=== PATIENT | female | born 1930 | race Caucasian/White ===

== ENCOUNTER 2017-02-14 08:50 | Inpatient (IN) | payer MEDICARE, OTHER ==
[2017-02-14] MEDS ORDERED: Sodium Chloride 0.9% 10 ML Syringe FLUSH PRN (09:00)
[2017-02-14] MEDS ORDERED: Lactated Ringers 1,000 ML IV SCH ×2 (09:00→13:30)
[2017-02-14] MEDS: cefOXitin 1 GM in Premix Bag 1 BAG IV ONE ×2 (10:48→11:37)
[2017-02-14] MEDS ORDERED: Edrophonium Chloride 150 MG/15 ML MDV IVPUSH ONE (11:40)
[2017-02-14] MEDS ORDERED: Dexamethasone 4 MG/ML 5 ML MDV IVPUSH ONE (11:40)
[2017-02-14] MEDS ORDERED: Lactated Ringers 1,000 ML IV ONE (11:40)
[2017-02-14] MEDS ORDERED: fentaNYL 100 MCG/2 ML SDV IV ONE (11:40)
[2017-02-14] MEDS ORDERED: Ondansetron 4 MG/2 ML SDV IVPUSH ONE (11:40)
[2017-02-14] MEDS ORDERED: Ketorolac 30 MG/ML SDV IVPUSH ONE (11:40)
[2017-02-14] MEDS ORDERED: Midazolam 1 MG/ML 2 ML SDV IV ONE (11:40)
[2017-02-14] MEDS ORDERED: Propofol 200 MG/20 ML SDV IV ONE (11:40)
[2017-02-14] MEDS ORDERED: Rocuronium 50 MG/5 ML Vial IV ONE (11:40)
[2017-02-14] MEDS ORDERED: Succinylcholine/Normal Saline 200 MG/10 ML Syringe IV ONE (11:40)
--- NOTE | 2017-02-14 11:45 | PCM.HPR ---
H & P Addendum review - H & P Addendum Review Date of Original H & P: 02/03/17 Date Reviewed: 02/14/17 Time Reviewed: 11:30 Patient was Examined: No Changes Please Note any Changes: Hgb 8; ok to proceed with surgery
--- NOTE | 2017-02-14 13:24 | PCM.OPNOTE ---
- General Post-Op/Procedure Note Date of Surgery/Procedure: 02/14/17 Operative Procedure(s): R Colectomy Findings: Cecal Tumor Pre Op Diagnosis: Cecal Ca Post-Op Diagnosis: Same Anesthesia Technique: General ET Tube Primary Surgeon: Juancho Leonard Secondary Surgeon: Keagan Mercado Anesthesia Provider: Allie Nieves Pathology: R Colon EBL in mLs: 20 (less than 50) Complications: None Condition: Good
[2017-02-14] MEDS ORDERED: Pantoprazole 40 MG Vial IVPUSH SCH (13:30)
[2017-02-14] MEDS ORDERED: fentaNYL 100 MCG/2 ML SDV IVPUSH PRN (13:30)
[2017-02-14] MEDS: Morphine 2 MG/ML Syringe IV PRN ×4 (14:09→15:00)
[2017-02-14] MEDS: Pantoprazole 40 MG Vial IVPUSH SCH (15:46)
[2017-02-14] MEDS: Morphine 2 MG/ML Syringe IVPUSH PRN ×2 (16:04→18:31)
[2017-02-14] MEDS: cefOXitin 1 GM in Premix Bag 1 BAG IV SCH ×2 (17:26→23:07)
[2017-02-14] MEDS: Lactated Ringers 1,000 ML IV SCH (19:52)
[2017-02-14] MEDS: Ketorolac 15 MG/ML SDV IVPUSH SCH (22:04)
[2017-02-15] MEDS: Morphine 2 MG/ML Syringe IVPUSH PRN ×2 (01:09→17:32)
--- NOTE | 2017-02-15 02:22 | OR ---
DATE OF OPERATION: 02/14/2017 SURGEON: Juancho Leonard MD PREOPERATIVE DIAGNOSIS: Adenocarcinoma of the cecum. POSTOPERATIVE DIAGNOSIS: Adenocarcinoma of the cecum. PROCEDURE PERFORMED: Right colectomy. ANESTHESIA: General. UTILITY ENGINEER: MD Dr. Keagan Lombardo was present and was integral for assistance and retracting during the operation. DESCRIPTION OF PROCEDURE: The patient was brought to the operating room, where general endotracheal anesthesia was administered. Mireles catheter was inserted and Flowtrons applied. Abdomen was prepped with ChloraPrep and draped sterilely. Midline incision was made and extended into the peritoneal cavity without difficulty. The wound protractor was placed and Middleton retractor system set up. General exploration revealed a large mobile tumor in the cecum with full thickness invasion through the wall. There was no peritoneal studding or other evidence of metastatic disease. Small bowel, peritoneal surfaces, stomach, and pelvis were normal. Adnexa are surgically absent. There were some adhesions of the terminal ileum to the right adnexa that were taken down with sharp dissection to expose and free up the terminal ileum. Gallbladder felt normal. The right and left lobe of the liver both have cysts at the dome approximately 1 cm in diameter. The right colon was mobilized along its peritoneal reflection using electrocautery. Terminal ileum was freed up with blunt and sharp dissection. The hepatocolic ligament was taken down with electrocautery. The lesser sac was entered and omentum freed off the right colon and transected in line with the midportion of the transverse colon. The middle colic vessel was identified and the mesentery scored to the right of the middle colic vessels. The mesentery was taken down with peons and 0 Vicryl ties. Larger vessels were doubly tied. Duodenum and retroperitoneal structures were protected from injury. The colon was transected with the Endo-HERMINIO stapler to the right of the middle colic vessels and approximately 10 cm proximal to the terminal ileum. The specimen was opened and sent for pathology review. A functional end-to-end anastomosis was then created by making an opening in the bowel end along the antimesenteric surfaces and the anastomosis was completed with a HERMINIO 55 stapler and the colotomy closed with a TA 60 stapler. The anastomosis was reinforced circumferentially with 3-0 silk and the heel of the anastomosis reinforced with 2-0 silk. The mesentery defect was closed with running 3-0 chromic. Bowel ends were delivered back into the abdomen and peritoneal cavity irrigated and return was clear and hemostasis assured. Fascia was closed with running #2 Prolene with a few #1 PDS interrupted internal retention sutures. The wound was irrigated and skin closed with gely. A sterile dressing was applied. The patient tolerated the procedure well. Estimated blood loss20 mL. She returned to postanesthesia in stable condition. /[id number] [place]
[2017-02-15] MEDS: Ketorolac 15 MG/ML SDV IVPUSH SCH ×4 (03:05→21:11)
[2017-02-15] MEDS: cefOXitin 1 GM in Premix Bag 1 BAG IV SCH ×4 (05:34→22:29)
[2017-02-15] MEDS: Lactated Ringers 1,000 ML IV SCH ×2 (05:39→18:41)
[2017-02-15] MEDS: Enoxaparin 30 MG/0.3 ML Syringe SUBCUT SCH (09:10)
--- NOTE | 2017-02-15 10:42 | PCM.SURGPN ---
- General Info Date of Service: 02/15/17 POD#: 1 Post-Op Diagnosis: Colon Cancer Functional Status: Reports: Pain Controlled, Ambulating - Review of Systems General: Reports: No Symptoms Pulmonary: Reports: No Symptoms Cardiovascular: Reports: No Symptoms Gastrointestinal: Reports: No Symptoms - Patient Data Vitals - most recent: Last Vital Signs Temp 97.7 F 02/15/17 08:04 Pulse 72 02/15/17 08:04 Resp 18 02/15/17 08:04 BP 127/65 02/15/17 08:04 Pulse Ox 98 02/15/17 08:04 Weight - most recent: 52.617 kg I&O - last 24 hours: Intake & Output 02/14/17 02/15/17 02/15/17 22:59 06:59 14:59 Intake Total 675 924 Output Total 250 Balance 675 674 Lab Results last 24 hrs: Laboratory Results - last 24 hr 02/14/17 02/14/17 02/15/17 Range/Units 10:59 10:59 06:40 WBC 8.6 (4.5-12.0) X10-3/uL RBC 3.22 L (3.23-5.20) x10(6)uL Hgb 8.0 L 7.4 L (11.5-15.5) g/dL Hct 24.3 L (30.0-51.3) % MCV 75.6 L (80-96) fL MCH 23.0 L (27.7-33.6) pg MCHC 30.4 L (32.2-35.4) g/dL RDW 30.3 H (11.5-15.5) % Plt Count 323 (125-369) X10(3)uL Sodium (135-145) mmol/L Potassium (3.5-5.3) mmol/L Chloride (100-110) mmol/L Carbon Dioxide (23-29) mmol/L BUN (8-23) mg/dL Creatinine (0.6-1.3) mg/dL Est Cr Clr Drug Dosing mL/min Estimated GFR (MDRD) (>60) BUN/Creatinine Ratio (9-20) Glucose (80-116) mg/dL Calcium (8.6-10.2) mg/dL Blood Type A POSITIVE Gel Antibody Screen Negative 02/15/17 Range/Units 06:40 WBC (4.5-12.0) X10-3/uL RBC (3.23-5.20) x10(6)uL Hgb (11.5-15.5) g/dL Hct (30.0-51.3) % MCV (80-96) fL MCH (27.7-33.6) pg MCHC (32.2-35.4) g/dL RDW (11.5-15.5) % Plt Count (125-369) X10(3)uL Sodium 131 L (135-145) mmol/L Potassium 3.9 (3.5-5.3) mmol/L Chloride 99 L (100-110) mmol/L Carbon Dioxide 26 (23-29) mmol/L BUN 15 (8-23) mg/dL Creatinine 0.7 (0.6-1.3) mg/dL Est Cr Clr Drug Dosing 46.47 mL/min Estimated GFR (MDRD) > 60 (>60) BUN/Creatinine Ratio 21.4 H (9-20) Glucose 123 H (80-116) mg/dL Calcium 9.3 (8.6-10.2) mg/dL Blood Type Gel Antibody Screen Med Orders - Current: Current Medications Enoxaparin Sodium (Lovenox) 30 mg SUBCUT Q24H [facility] Last Admin: 02/15/17 09:10 Dose: 30 mg Lactated Ringer's (Ringers, Lactated) 1,000 mls @ 100 mls/hr IV ASDIRECTED [facility] Last Admin: 02/15/17 05:39 Dose: 100 mls/hr Cefoxitin Sodium 1 gm/ Premix 50 mls @ 100 mls/hr IV Q6H [facility] Stop: 02/16/17 05:29 Last Admin: 02/15/17 05:34 Dose: 100 mls/hr Ketorolac Tromethamine (Toradol) 15 mg IVPUSH Q6H [facility] Stop: 02/16/17 21:01 Last Admin: 02/15/17 09:10 Dose: 15 mg Morphine Sulfate (Morphine) 1 mg IVPUSH Q2H PRN PRN Reason: Pain (severe 7-10) Last Admin: 02/15/17 01:09 Dose: 1 mg Pantoprazole Sodium (Protonix Iv) 40 mg IVPUSH Q24H [facility] Last Admin: 02/14/17 15:46 Dose: 40 mg Sodium Chloride (Saline Flush) 10 ml FLUSH ASDIRECTED PRN PRN Reason: Keep Vein Open Discontinued Medications Fentanyl (Sublimaze) 50 mcg IVPUSH Q5M PRN PRN Reason: Pain (severe 7-10) Lactated Ringer's (Ringers, Lactated) 1,000 mls @ 125 mls/hr IV ASDIRECTED [facility] Last Admin: 02/14/17 10:24 Dose: 125 mls/hr Cefoxitin Sodium 1 gm/ Premix 50 mls @ 100 mls/hr IV ONETIME ONE Stop: 02/14/17 11:14 Last Admin: 02/14/17 11:37 Dose: 100 mls/hr Lactated Ringer's (Ringers, Lactated) 1,000 mls @ 0 mls/hr IV ASDIRECTED [facility] PRN Reason: KVO Morphine Sulfate (Morphine) 2 mg IV Q5M PRN PRN Reason: Pain (moderate 4-6) Last Admin: 02/14/17 15:00 Dose: 2 mg Pantoprazole Sodium (Protonix Iv) 40 mg IVPUSH Q24H [facility] - Exam Wound/Incisions: healing well, dressing dry and intact General: alert, oriented Lungs: Clear to Auscultation, Normal Respiratory Effort GI/Abdominal Exam: Soft, Non-Tender, No Distention - Problem List Review Problem List Initiated/Reviewed/Updated: Yes - My Orders Last 24 Hours: Active Orders 24 hr Category Date Time Status Communication Order [RC] ASDIRECTED Care 02/14/17 13:30 Active Cooling Warming Measures [RC] ASDIRECTED Care 02/14/17 13:30 Active Mireles Catheter Insertion [Insert Urinary Catheter] [OM. Care 02/14/17 11:00 Ordered PC] Q24H Notify Provider [RC] PRN Care 02/14/17 13:30 Active Oxygen Therapy [RC] PRN Care 02/14/17 13:25 Active RT Incentive Spirometry [RC] Q2HWA Care 02/14/17 13:25 Active Up With Assistance [RC] QSHIFT Care 02/14/17 13:25 Active Urinary Catheter Assessment [RC] QSHIFT Care 02/14/17 11:00 Active Vital Signs [RC] PER UNIT ROUTINE Care 02/14/17 13:25 Hold Vital Signs [RC] PER UNIT ROUTINE Care 02/14/17 13:30 Active Nothing Per Oral Diet [DIET] Diet 02/14/17 Dinner Active PATIENT RETYPE [BBK] Routine Lab 02/14/17 10:59 Results TYPE AND SCREEN [BBK] Routine Lab 02/14/17 10:59 Results Enoxaparin [Lovenox] Med 02/15/17 09:00 Active 30 mg SUBCUT Q24H Ketorolac [Toradol] Med 02/14/17 21:00 Active 15 mg IVPUSH Q6H Lactated Ringers [Ringers, Lactated] 1,000 ml Med 02/14/17 13:30 Active IV ASDIRECTED Morphine Med 02/14/17 13:25 Active 1 mg IVPUSH Q2H PRN Pantoprazole [ProTONIX IV] Med 02/14/17 16:00 Active 40 mg IVPUSH Q24H cefOXitin [Mefoxin in Dextrose,Iso-Osm 1 GM/50 ML] 1 gm Med 02/14/17 17:00 Active Premix Bag 1 bag IV Q6H SCD [Sequential Compression Device] [OM.PC] Routine Oth 02/14/17 13:32 Ordered Medication Orders Enoxaparin Sodium (Lovenox) 30 mg SUBCUT Q24H [facility] Last Admin: 02/15/17 09:10 Dose: 30 mg Lactated Ringer's (Ringers, Lactated) 1,000 mls @ 100 mls/hr IV ASDIRECTED [facility] Last Admin: 02/15/17 05:39 Dose: 100 mls/hr Infusion: 02/15/17 05:39 Dose: 100 mls/hr Admin: 02/14/17 19:52 Dose: 100 mls/hr Cefoxitin Sodium 1 gm/ Premix 50 mls @ 100 mls/hr IV Q6H [facility] Stop: 02/16/17 05:29 Last Admin: 02/15/17 05:34 Dose: 100 mls/hr Infusion: 02/14/17 23:37 Dose: 100 mls/hr Admin: 02/14/17 23:07 Dose: 100 mls/hr Infusion: 02/14/17 17:56 Dose: 100 mls/hr Admin: 02/14/17 17:26 Dose: 100 mls/hr Ketorolac Tromethamine (Toradol) 15 mg IVPUSH Q6H [facility] Stop: 02/16/17 21:01 Last Admin: 02/15/17 09:10 Dose: 15 mg Admin: 02/15/17 03:05 Dose: 15 mg Admin: 02/14/17 22:04 Dose: 15 mg Morphine Sulfate (Morphine) 1 mg IVPUSH Q2H PRN PRN Reason: Pain (severe 7-10) Last Admin: 02/15/17 01:09 Dose: 1 mg Admin: 02/14/17 18:31 Dose: 1 mg Admin: 02/14/17 16:04 Dose: 1 mg Pantoprazole Sodium (Protonix Iv) 40 mg IVPUSH Q24H [facility] Last Admin: 02/14/17 15:46 Dose: 40 mg Sodium Chloride (Saline Flush) 10 ml FLUSH ASDIRECTED PRN PRN Reason: Keep Vein Open - Assessment Assessment (Free Text/Narrative):: Doing Well POD #1 - Plan Plan (Free Text/Narrative):: Cont as is
[2017-02-15] MEDS: Pantoprazole 40 MG Vial IVPUSH SCH (16:15)
[2017-02-15] MEDS: Pramipexole 0.25 MG Tab PO SCH (18:39)
[2017-02-16] MEDS: Ketorolac 15 MG/ML SDV IVPUSH SCH ×4 (02:53→20:44)
[2017-02-16] MEDS: cefOXitin 1 GM in Premix Bag 1 BAG IV SCH (04:54)
[2017-02-16] MEDS: Enoxaparin 30 MG/0.3 ML Syringe SUBCUT SCH (08:42)
[2017-02-16] MEDS: Lactated Ringers 1,000 ML IV SCH ×2 (08:46→22:41)
--- NOTE | 2017-02-16 13:19 | PCM.SURGPN ---
- General Info Date of Service: 02/16/17 POD#: 2 Functional Status: Reports: Pain Controlled, Ambulating, Urinating - Review of Systems General: Reports: No Symptoms Pulmonary: Reports: No Symptoms Cardiovascular: Reports: No Symptoms Gastrointestinal: Reports: No Symptoms, Other (had 2 small BM's) - Patient Data Vitals - most recent: Last Vital Signs Temp 97.9 F 02/16/17 08:00 Pulse 71 02/16/17 08:00 Resp 18 02/16/17 08:00 BP 138/71 02/16/17 08:00 Pulse Ox 99 02/16/17 08:00 Weight - most recent: 53.07 kg I&O - last 24 hours: Intake & Output 02/15/17 02/16/17 02/16/17 22:59 06:59 14:59 Intake Total 760 671 Balance 760 671 Lab Results last 24 hrs: Laboratory Results - last 24 hr 02/14/17 Range/Units 10:59 Blood Type A POSITIVE Gel Antibody Screen Negative Med Orders - Current: Current Medications Enoxaparin Sodium (Lovenox) 30 mg SUBCUT Q24H [facility] Last Admin: 02/16/17 08:42 Dose: 30 mg Lactated Ringer's (Ringers, Lactated) 1,000 mls @ 75 mls/hr IV ASDIRECTED [facility] Last Admin: 02/16/17 08:46 Dose: 100 mls/hr Ketorolac Tromethamine (Toradol) 15 mg IVPUSH Q6H [facility] Stop: 02/16/17 21:01 Last Admin: 02/16/17 08:42 Dose: 15 mg Morphine Sulfate (Morphine) 1 mg IVPUSH Q2H PRN PRN Reason: Pain (severe 7-10) Last Admin: 02/15/17 17:32 Dose: 1 mg Pantoprazole Sodium (Protonix Iv) 40 mg IVPUSH Q24H [facility] Last Admin: 02/15/17 16:15 Dose: 40 mg Pramipexole Dihydrochloride (Mirapex) 0.125 mg PO 1800 [facility] Last Admin: 02/15/17 18:39 Dose: 0.125 mg Sodium Chloride (Saline Flush) 10 ml FLUSH ASDIRECTED PRN PRN Reason: Keep Vein Open Discontinued Medications Fentanyl (Sublimaze) 50 mcg IVPUSH Q5M PRN PRN Reason: Pain (severe 7-10) Lactated Ringer's (Ringers, Lactated) 1,000 mls @ 125 mls/hr IV ASDIRECTED [facility] Last Admin: 02/14/17 10:24 Dose: 125 mls/hr Cefoxitin Sodium 1 gm/ Premix 50 mls @ 100 mls/hr IV ONETIME ONE Stop: 02/14/17 11:14 Last Admin: 02/14/17 11:37 Dose: 100 mls/hr Cefoxitin Sodium 1 gm/ Premix 50 mls @ 100 mls/hr IV Q6H [facility] Stop: 02/16/17 05:29 Last Admin: 02/16/17 04:54 Dose: 100 mls/hr Lactated Ringer's (Ringers, Lactated) 1,000 mls @ 0 mls/hr IV ASDIRECTED [facility] PRN Reason: KVO Morphine Sulfate (Morphine) 2 mg IV Q5M PRN PRN Reason: Pain (moderate 4-6) Last Admin: 02/14/17 15:00 Dose: 2 mg Pantoprazole Sodium (Protonix Iv) 40 mg IVPUSH Q24H [facility] - Exam Wound/Incisions: healing well, dressing dry and intact General: alert, oriented Lungs: Clear to Auscultation GI/Abdominal Exam: Soft, Non-Tender - Problem List Review Problem List Initiated/Reviewed/Updated: Yes - My Orders Last 24 Hours: Active Orders 24 hr Category Date Time Status Intake and Output [RC] QSHIFT Care 02/16/17 13:12 Ordered Pramipexole [Mirapex] Med 02/15/17 18:00 Active 0.125 mg PO 1800 Medication Orders Enoxaparin Sodium (Lovenox) 30 mg SUBCUT Q24H [facility] Last Admin: 02/16/17 08:42 Dose: 30 mg Admin: 02/15/17 09:10 Dose: 30 mg Lactated Ringer's (Ringers, Lactated) 1,000 mls @ 75 mls/hr IV ASDIRECTED [facility] Last Admin: 02/16/17 08:46 Dose: 100 mls/hr Infusion: 02/16/17 04:41 Dose: 100 mls/hr Admin: 02/15/17 18:41 Dose: 100 mls/hr Infusion: 02/15/17 15:39 Dose: 100 mls/hr Admin: 02/15/17 05:39 Dose: 100 mls/hr Infusion: 02/15/17 05:39 Dose: 100 mls/hr Admin: 02/14/17 19:52 Dose: 100 mls/hr Ketorolac Tromethamine (Toradol) 15 mg IVPUSH Q6H [facility] Stop: 02/16/17 21:01 Last Admin: 02/16/17 08:42 Dose: 15 mg Admin: 02/16/17 02:53 Dose: 15 mg Admin: 02/15/17 21:11 Dose: 15 mg Admin: 02/15/17 14:17 Dose: 15 mg Admin: 02/15/17 09:10 Dose: 15 mg Admin: 02/15/17 03:05 Dose: 15 mg Admin: 02/14/17 22:04 Dose: 15 mg Morphine Sulfate (Morphine) 1 mg IVPUSH Q2H PRN PRN Reason: Pain (severe 7-10) Last Admin: 02/15/17 17:32 Dose: 1 mg Admin: 02/15/17 01:09 Dose: 1 mg Admin: 02/14/17 18:31 Dose: 1 mg Admin: 02/14/17 16:04 Dose: 1 mg Pantoprazole Sodium (Protonix Iv) 40 mg IVPUSH Q24H [facility] Last Admin: 02/15/17 16:15 Dose: 40 mg Admin: 02/14/17 15:46 Dose: 40 mg Pramipexole Dihydrochloride (Mirapex) 0.125 mg PO 1800 [facility] Last Admin: 02/15/17 18:39 Dose: 0.125 mg Sodium Chloride (Saline Flush) 10 ml FLUSH ASDIRECTED PRN PRN Reason: Keep Vein Open - Assessment Assessment (Free Text/Narrative):: Doing well - Plan Plan (Free Text/Narrative):: Cont as is
[2017-02-16] MEDS: Pantoprazole 40 MG Vial IVPUSH SCH (15:58)
[2017-02-16] MEDS: Pramipexole 0.25 MG Tab PO SCH (18:33)
[2017-02-17] MEDS: Enoxaparin 30 MG/0.3 ML Syringe SUBCUT SCH (08:35)
--- NOTE | 2017-02-17 09:43 | PCM.SURGPN ---
- General Info Date of Service: 02/17/17 POD#: 3 Functional Status: Reports: Pain Controlled, Ambulating, Urinating - Review of Systems General: Reports: No Symptoms Pulmonary: Reports: No Symptoms Cardiovascular: Reports: No Symptoms Gastrointestinal: Reports: No Symptoms, Flatus Genitourinary: Reports: No Symptoms - Patient Data Vitals - most recent: Last Vital Signs Temp 97.9 F 02/17/17 02:51 Pulse 64 02/17/17 02:51 Resp 18 02/17/17 02:51 BP 142/79 H 02/17/17 02:51 Pulse Ox 99 02/17/17 02:51 Weight - most recent: 51.982 kg I&O - last 24 hours: Intake & Output 02/16/17 02/17/17 02/17/17 22:59 06:59 14:59 Intake Total 714 634 Output Total 1000 1175 Balance -286 548 Med Orders - Current: Current Medications Enoxaparin Sodium (Lovenox) 30 mg SUBCUT Q24H [facility] Last Admin: 02/17/17 08:35 Dose: 30 mg Lactated Ringer's (Ringers, Lactated) 1,000 mls @ 75 mls/hr IV ASDIRECTED [facility] Last Admin: 02/16/17 22:41 Dose: 100 mls/hr Morphine Sulfate (Morphine) 1 mg IVPUSH Q2H PRN PRN Reason: Pain (severe 7-10) Last Admin: 02/15/17 17:32 Dose: 1 mg Pantoprazole Sodium (Protonix Iv) 40 mg IVPUSH Q24H [facility] Last Admin: 02/16/17 15:58 Dose: 40 mg Pramipexole Dihydrochloride (Mirapex) 0.125 mg PO 1800 [facility] Last Admin: 02/16/17 18:33 Dose: 0.125 mg Sodium Chloride (Saline Flush) 10 ml FLUSH ASDIRECTED PRN PRN Reason: Keep Vein Open Discontinued Medications Fentanyl (Sublimaze) 50 mcg IVPUSH Q5M PRN PRN Reason: Pain (severe 7-10) Lactated Ringer's (Ringers, Lactated) 1,000 mls @ 125 mls/hr IV ASDIRECTED [facility] Last Admin: 02/14/17 10:24 Dose: 125 mls/hr Cefoxitin Sodium 1 gm/ Premix 50 mls @ 100 mls/hr IV ONETIME ONE Stop: 02/14/17 11:14 Last Admin: 02/14/17 11:37 Dose: 100 mls/hr Cefoxitin Sodium 1 gm/ Premix 50 mls @ 100 mls/hr IV Q6H [facility] Stop: 02/16/17 05:29 Last Admin: 02/16/17 04:54 Dose: 100 mls/hr Lactated Ringer's (Ringers, Lactated) 1,000 mls @ 0 mls/hr IV ASDIRECTED [facility] PRN Reason: KVO Ketorolac Tromethamine (Toradol) 15 mg IVPUSH Q6H [facility] Stop: 02/16/17 21:01 Last Admin: 02/16/17 20:44 Dose: 15 mg Morphine Sulfate (Morphine) 2 mg IV Q5M PRN PRN Reason: Pain (moderate 4-6) Last Admin: 02/14/17 15:00 Dose: 2 mg Pantoprazole Sodium (Protonix Iv) 40 mg IVPUSH Q24H [facility] - Exam Wound/Incisions: healing well General: alert, oriented Lungs: Clear to Auscultation GI/Abdominal Exam: Soft, Non-Tender - Problem List Review Problem List Initiated/Reviewed/Updated: Yes - My Orders Last 24 Hours: Active Orders 24 hr Category Date Time Status Intake and Output [RC] 06,14,22 Care 02/16/17 13:12 Active BASIC METABOLIC PANEL,BMP [CHEM] Routine Lab 02/18/17 Ordered CBC W/O DIFF,HEMOGRAM [HEME] Routine Lab 02/18/17 Ordered Medication Orders Enoxaparin Sodium (Lovenox) 30 mg SUBCUT Q24H [facility] Last Admin: 02/17/17 08:35 Dose: 30 mg Admin: 02/16/17 08:42 Dose: 30 mg Admin: 02/15/17 09:10 Dose: 30 mg Lactated Ringer's (Ringers, Lactated) 1,000 mls @ 75 mls/hr IV ASDIRECTED [facility] Last Admin: 02/16/17 22:41 Dose: 100 mls/hr Infusion: 02/16/17 18:46 Dose: 100 mls/hr Admin: 02/16/17 08:46 Dose: 100 mls/hr Infusion: 02/16/17 04:41 Dose: 100 mls/hr Admin: 02/15/17 18:41 Dose: 100 mls/hr Infusion: 02/15/17 15:39 Dose: 100 mls/hr Admin: 02/15/17 05:39 Dose: 100 mls/hr Infusion: 02/15/17 05:39 Dose: 100 mls/hr Admin: 02/14/17 19:52 Dose: 100 mls/hr Morphine Sulfate (Morphine) 1 mg IVPUSH Q2H PRN PRN Reason: Pain (severe 7-10) Last Admin: 02/15/17 17:32 Dose: 1 mg Admin: 02/15/17 01:09 Dose: 1 mg Admin: 02/14/17 18:31 Dose: 1 mg Admin: 02/14/17 16:04 Dose: 1 mg Pantoprazole Sodium (Protonix Iv) 40 mg IVPUSH Q24H [facility] Last Admin: 02/16/17 15:58 Dose: 40 mg Admin: 02/15/17 16:15 Dose: 40 mg Admin: 02/14/17 15:46 Dose: 40 mg Pramipexole Dihydrochloride (Mirapex) 0.125 mg PO 1800 [facility] Last Admin: 02/16/17 18:33 Dose: 0.125 mg Admin: 02/15/17 18:39 Dose: 0.125 mg Sodium Chloride (Saline Flush) 10 ml FLUSH ASDIRECTED PRN PRN Reason: Keep Vein Open - Assessment Assessment (Free Text/Narrative):: Doing well POD #3 - Plan Plan (Free Text/Narrative):: Start po. check labs in am
[2017-02-17] MEDS: Lactated Ringers 1,000 ML IV SCH (12:03)
[2017-02-17] MEDS: Pantoprazole 40 MG Vial IVPUSH SCH (16:16)
[2017-02-17] MEDS: Pramipexole 0.25 MG Tab PO SCH (17:39)
[2017-02-18] MEDS: Morphine 2 MG/ML Syringe IVPUSH PRN (02:36)
[2017-02-18] MEDS: Lactated Ringers 1,000 ML IV SCH (04:37)
[2017-02-18] MEDS ORDERED: Ibuprofen 400 MG Tab PO PRN (08:24)
--- NOTE | 2017-02-18 08:27 | PCM.SURGPN ---
- General Info Date of Service: 02/18/17 POD#: 4 Functional Status: Reports: Pain Controlled, Tolerating Diet - Review of Systems General: Reports: No Symptoms Cardiovascular: Reports: No Symptoms Genitourinary: Reports: No Symptoms - Patient Data Vitals - Most Recent: Last Vital Signs Temp 98.4 F 02/18/17 00:00 Pulse 84 02/18/17 00:00 Resp 16 02/18/17 00:00 BP 144/81 H 02/18/17 00:00 Pulse Ox 100 02/18/17 00:00 Weight - Most Recent: 51.982 kg I&O - Last 24 Hours: Intake & Output 02/17/17 02/18/17 02/18/17 22:59 06:59 14:59 Intake Total 800 1429 Output Total 525 600 Balance 275 829 Lab Results Last 24 Hrs: Laboratory Results - last 24 hr 02/18/17 02/18/17 Range/Units 06:17 06:17 WBC 4.4 L (4.5-12.0) X10-3/uL RBC 3.34 (3.23-5.20) x10(6)uL Hgb 7.8 L (11.5-15.5) g/dL Hct 25.4 L (30.0-51.3) % MCV 76.1 L (80-96) fL MCH 23.3 L (27.7-33.6) pg MCHC 30.6 L (32.2-35.4) g/dL RDW 29.6 H (11.5-15.5) % Plt Count 368 (125-369) X10(3)uL Sodium 130 L (135-145) mmol/L Potassium 3.1 L (3.5-5.3) mmol/L Chloride 97 L (100-110) mmol/L Carbon Dioxide 26 (23-29) mmol/L BUN 7 L (8-23) mg/dL Creatinine 0.5 L (0.6-1.3) mg/dL Est Cr Clr Drug Dosing 65.06 mL/min Estimated GFR (MDRD) > 60 (>60) BUN/Creatinine Ratio 14.0 (9-20) Glucose 94 (80-116) mg/dL Calcium 9.2 (8.6-10.2) mg/dL Med Orders - Current: Current Medications Enoxaparin Sodium (Lovenox) 30 mg SUBCUT Q24H [facility] Last Admin: 02/17/17 08:35 Dose: 30 mg Lactated Ringer's (Ringers, Lactated) 1,000 mls @ 75 mls/hr IV ASDIRECTED [facility] Last Admin: 02/18/17 04:37 Dose: 100 mls/hr Ibuprofen (Motrin) 400 mg PO Q6H PRN PRN Reason: Abdominal Pain Pramipexole Dihydrochloride (Mirapex) 0.125 mg PO 1800 [facility] Last Admin: 02/17/17 17:39 Dose: 0.125 mg Sodium Chloride (Saline Flush) 10 ml FLUSH ASDIRECTED PRN PRN Reason: Keep Vein Open Triamterene/HCTZ (Maxzide 25-37.5 Mg) 0.5 each PO DAILY [facility] Discontinued Medications Dexamethasone (Dexamethasone) 8 mg IVPUSH .STK-MED ONE Stop: 02/14/17 11:41 Edrophonium Chloride (Enlon) 30 mg IVPUSH .STK-MED ONE Stop: 02/14/17 11:41 Fentanyl (Sublimaze) 50 mcg IVPUSH Q5M PRN PRN Reason: Pain (severe 7-10) Fentanyl (Sublimaze) 100 mcg IV .STK-MED ONE Stop: 02/14/17 11:41 Glycopyrrolate () 0.4 mg IVPUSH .STK-MED ONE Stop: 02/14/17 11:41 Lactated Ringer's (Ringers, Lactated) 1,000 mls @ 125 mls/hr IV ASDIRECTED [facility] Last Admin: 02/14/17 10:24 Dose: 125 mls/hr Cefoxitin Sodium 1 gm/ Premix 50 mls @ 100 mls/hr IV ONETIME ONE Stop: 02/14/17 11:14 Last Admin: 02/14/17 11:37 Dose: 100 mls/hr Cefoxitin Sodium 1 gm/ Premix 50 mls @ 100 mls/hr IV Q6H [facility] Stop: 02/16/17 05:29 Last Admin: 02/16/17 04:54 Dose: 100 mls/hr Lactated Ringer's (Ringers, Lactated) 1,000 mls @ 0 mls/hr IV ASDIRECTED [facility] PRN Reason: KVO Lactated Ringer's (Ringers, Lactated) 1,000 mls @ as directed IV .STK-MED ONE Stop: 02/14/17 11:41 Ketorolac Tromethamine (Toradol) 15 mg IVPUSH Q6H [facility] Stop: 02/16/17 21:01 Last Admin: 02/16/17 20:44 Dose: 15 mg Ketorolac Tromethamine (Toradol) 15 mg IVPUSH .STK-MED ONE Stop: 02/14/17 11:41 Midazolam HCl (Versed 1 Mg/Ml) 2 mg IV .STK-MED ONE Stop: 02/14/17 11:41 Morphine Sulfate (Morphine) 1 mg IVPUSH Q2H PRN PRN Reason: Pain (severe 7-10) Last Admin: 02/18/17 02:36 Dose: 1 mg Morphine Sulfate (Morphine) 2 mg IV Q5M PRN PRN Reason: Pain (moderate 4-6) Last Admin: 02/14/17 15:00 Dose: 2 mg Ondansetron HCl (Zofran) 4 mg IVPUSH .STK-MED ONE Stop: 02/14/17 11:41 Pantoprazole Sodium (Protonix Iv) 40 mg IVPUSH Q24H [facility] Pantoprazole Sodium (Protonix Iv) 40 mg IVPUSH Q24H [facility] Last Admin: 02/17/17 16:16 Dose: 40 mg Propofol (Diprivan 20 Ml) 140 mg IV .STK-MED ONE Stop: 02/14/17 11:41 Rocuronium [place] (Zemuron) 50 mg IV .STK-MED ONE Stop: 02/14/17 11:41 Succinylcholine Chloride (Succinylcholine In Ns Pf) 80 mg IV .STK-MED ONE Stop: 02/14/17 11:41 - Exam Wound/Incisions: Healing Well General: Alert, Oriented GI/Abdominal Exam: Soft, No Mass - Problem List Review Problem List Initiated/Reviewed/Updated: Yes - My Orders Last 24 Hours: Active Orders 24 hr Category Date Time Status Adult Diet [DIET] Diet 02/18/17 Lunch Ordered HCTZ/Triamterene [Maxzide 25-37.5 MG] Med 02/18/17 09:00 Ordered 0.5 each PO DAILY Ibuprofen [Motrin] Med 02/18/17 08:24 Ordered 400 mg PO Q6H PRN Medication Orders Enoxaparin Sodium (Lovenox) 30 mg SUBCUT Q24H [facility] Last Admin: 02/17/17 08:35 Dose: 30 mg Admin: 02/16/17 08:42 Dose: 30 mg Admin: 02/15/17 09:10 Dose: 30 mg Lactated Ringer's (Ringers, Lactated) 1,000 mls @ 75 mls/hr IV ASDIRECTED [facility] Last Admin: 02/18/17 04:37 Dose: 100 mls/hr Infusion: 02/17/17 22:03 Dose: 100 mls/hr Admin: 02/17/17 12:03 Dose: 100 mls/hr Infusion: 02/17/17 08:41 Dose: 100 mls/hr Admin: 02/16/17 22:41 Dose: 100 mls/hr Infusion: 02/16/17 18:46 Dose: 100 mls/hr Admin: 02/16/17 08:46 Dose: 100 mls/hr Infusion: 02/16/17 04:41 Dose: 100 mls/hr Admin: 02/15/17 18:41 Dose: 100 mls/hr Infusion: 02/15/17 15:39 Dose: 100 mls/hr Admin: 02/15/17 05:39 Dose: 100 mls/hr Infusion: 02/15/17 05:39 Dose: 100 mls/hr Admin: 02/14/17 19:52 Dose: 100 mls/hr Ibuprofen (Motrin) 400 mg PO Q6H PRN PRN Reason: Abdominal Pain Pramipexole Dihydrochloride (Mirapex) 0.125 mg PO 1800 [facility] Last Admin: 02/17/17 17:39 Dose: 0.125 mg Admin: 02/16/17 18:33 Dose: 0.125 mg Admin: 02/15/17 18:39 Dose: 0.125 mg Sodium Chloride (Saline Flush) 10 ml FLUSH ASDIRECTED PRN PRN Reason: Keep Vein Open Triamterene/HCTZ (Maxzide 25-37.5 Mg) 0.5 each PO DAILY [facility] - Assessment Assessment (Free Text/Narrative):: Doing well POD #4 - Plan Plan (Free Text/Narrative):: Advance Diet Add K to IV fluids
[2017-02-18] MEDS: Enoxaparin 30 MG/0.3 ML Syringe SUBCUT SCH (09:06)
[2017-02-18] MEDS: Hydrochlorothiazide/Triamterene 25-37.5 Tab PO SCH (09:42)
[2017-02-18] MEDS: Pramipexole 0.25 MG Tab PO SCH (18:24)
[2017-02-19] MEDS: Hydrochlorothiazide/Triamterene 25-37.5 Tab PO SCH (09:08)
[2017-02-19] MEDS: Enoxaparin 30 MG/0.3 ML Syringe SUBCUT SCH (09:08)
[2017-02-19 13:14] VITALS: BP 122/63
--- NOTE | 2017-02-19 13:43 | PCM.SURGPN ---
- General Info Date of Service: 02/19/17 POD#: 5 Functional Status: Reports: Pain Controlled, Tolerating Diet - Review of Systems General: Reports: No Symptoms Gastrointestinal: Reports: No Symptoms - Patient Data Vitals - Most Recent: Last Vital Signs Temp 97.6 F 02/19/17 12:00 Pulse 77 02/19/17 12:00 Resp 18 02/19/17 12:00 BP 122/63 02/19/17 12:00 Pulse Ox 99 02/19/17 12:00 Weight - Most Recent: 51.982 kg I&O - Last 24 Hours: Intake & Output 02/18/17 02/19/17 02/19/17 22:59 06:59 14:59 Intake Total 769 201 7017 Output Total 550 700 600 Balance 1 13 560 Med Orders - Current: Current Medications Enoxaparin Sodium (Lovenox) 30 mg SUBCUT Q24H [facility] Last Admin: 02/19/17 09:08 Dose: 30 mg Potassium Chloride 20 meq/ (Lactated Ringer's) 1,010 mls @ 75 mls/hr IV Q13H [facility] Last Admin: 02/19/17 12:38 Dose: 75 mls/hr Ibuprofen (Motrin) 400 mg PO Q6H PRN PRN Reason: Abdominal Pain Last Admin: 02/18/17 21:31 Dose: 400 mg Pramipexole Dihydrochloride (Mirapex) 0.125 mg PO 1800 [facility] Last Admin: 02/18/17 18:24 Dose: 0.125 mg Sodium Chloride (Saline Flush) 10 ml FLUSH ASDIRECTED PRN PRN Reason: Keep Vein Open Triamterene/HCTZ (Maxzide 25-37.5 Mg) 0.5 each PO DAILY [facility] Last Admin: 02/19/17 09:08 Dose: 0.5 each Discontinued Medications Dexamethasone (Dexamethasone) 8 mg IVPUSH .STK-MED ONE Stop: 02/14/17 11:41 Edrophonium Chloride (Enlon) 30 mg IVPUSH .STK-MED ONE Stop: 02/14/17 11:41 Fentanyl (Sublimaze) 50 mcg IVPUSH Q5M PRN PRN Reason: Pain (severe 7-10) Fentanyl (Sublimaze) 100 mcg IV .STK-MED ONE Stop: 02/14/17 11:41 Glycopyrrolate () 0.4 mg IVPUSH .STK-MED ONE Stop: 02/14/17 11:41 Lactated Ringer's (Ringers, Lactated) 1,000 mls @ 125 mls/hr IV ASDIRECTED [facility] Last Admin: 02/14/17 10:24 Dose: 125 mls/hr Cefoxitin Sodium 1 gm/ Premix 50 mls @ 100 mls/hr IV ONETIME ONE Stop: 02/14/17 11:14 Last Admin: 02/14/17 11:37 Dose: 100 mls/hr Lactated Ringer's (Ringers, Lactated) 1,000 mls @ 75 mls/hr IV ASDIRECTED [facility] Last Admin: 02/18/17 04:37 Dose: 100 mls/hr Cefoxitin Sodium 1 gm/ Premix 50 mls @ 100 mls/hr IV Q6H [facility] Stop: 02/16/17 05:29 Last Admin: 02/16/17 04:54 Dose: 100 mls/hr Lactated Ringer's (Ringers, Lactated) 1,000 mls @ 0 mls/hr IV ASDIRECTED [facility] PRN Reason: KVO Lactated Ringer's (Ringers, Lactated) 1,000 mls @ as directed IV .STK-MED ONE Stop: 02/14/17 11:41 Ketorolac Tromethamine (Toradol) 15 mg IVPUSH Q6H [facility] Stop: 02/16/17 21:01 Last Admin: 02/16/17 20:44 Dose: 15 mg Ketorolac Tromethamine (Toradol) 15 mg IVPUSH .STK-MED ONE Stop: 02/14/17 11:41 Midazolam HCl (Versed 1 Mg/Ml) 2 mg IV .STK-MED ONE Stop: 02/14/17 11:41 Morphine Sulfate (Morphine) 1 mg IVPUSH Q2H PRN PRN Reason: Pain (severe 7-10) Last Admin: 02/18/17 02:36 Dose: 1 mg Morphine Sulfate (Morphine) 2 mg IV Q5M PRN PRN Reason: Pain (moderate 4-6) Last Admin: 02/14/17 15:00 Dose: 2 mg Ondansetron HCl (Zofran) 4 mg IVPUSH .STK-MED ONE Stop: 02/14/17 11:41 Pantoprazole Sodium (Protonix Iv) 40 mg IVPUSH Q24H [facility] Pantoprazole Sodium (Protonix Iv) 40 mg IVPUSH Q24H [facility] Last Admin: 02/17/17 16:16 Dose: 40 mg Propofol (Diprivan 20 Ml) 140 mg IV .STK-MED ONE Stop: 02/14/17 11:41 Rocuronium [place] (Zemuron) 50 mg IV .STK-MED ONE Stop: 02/14/17 11:41 Succinylcholine Chloride (Succinylcholine In Ns Pf) 80 mg IV .STK-MED ONE Stop: 02/14/17 11:41 - Exam Wound/Incisions: Healing Well - Problem List Review Problem List Initiated/Reviewed/Updated: Yes - My Orders Last 24 Hours: Active Orders 24 hr Category Date Time Status Discontinue Saline Lock [Peripheral IV Discontinue] [ Oth 02/19/17 13:07 Ordered .] Routine Medication Orders Enoxaparin Sodium (Lovenox) 30 mg SUBCUT Q24H [facility] Last Admin: 02/19/17 09:08 Dose: 30 mg Admin: 02/18/17 09:06 Dose: 30 mg Admin: 02/17/17 08:35 Dose: 30 mg Admin: 02/16/17 08:42 Dose: 30 mg Admin: 02/15/17 09:10 Dose: 30 mg Potassium Chloride 20 meq/ (Lactated Ringer's) 1,010 mls @ 75 mls/hr IV Q13H [facility] Last Admin: 02/19/17 12:38 Dose: 75 mls/hr Infusion: 02/19/17 12:06 Dose: 75 mls/hr Admin: 02/18/17 22:37 Dose: 75 mls/hr Infusion: 02/18/17 22:35 Dose: 75 mls/hr Admin: 02/18/17 09:06 Dose: 75 mls/hr Ibuprofen (Motrin) 400 mg PO Q6H PRN PRN Reason: Abdominal Pain Last Admin: 02/18/17 21:31 Dose: 400 mg Pramipexole Dihydrochloride (Mirapex) 0.125 mg PO 1800 [facility] Last Admin: 02/18/17 18:24 Dose: 0.125 mg Admin: 02/17/17 17:39 Dose: 0.125 mg Admin: 02/16/17 18:33 Dose: 0.125 mg Admin: 02/15/17 18:39 Dose: 0.125 mg Sodium Chloride (Saline Flush) 10 ml FLUSH ASDIRECTED PRN PRN Reason: Keep Vein Open Triamterene/HCTZ (Maxzide 25-37.5 Mg) 0.5 each PO DAILY [facility] Last Admin: 02/19/17 09:08 Dose: 0.5 each Admin: 02/18/17 09:42 Dose: 0.5 each - Assessment Assessment (Free Text/Narrative):: Doing well, ready for discharge - Plan Plan (Free Text/Narrative):: Discharge to home
--- NOTE | 2017-02-19 13:56 | PCM.DCSUM1 ---
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 - Patient Instructions Diet: Usual Diet as Tolerated Activity: No Lifting Over 20 Pounds (for 6 weeks) Driving: Do Not Drive (for 2 weeks) Showering/Bathing: May Shower Wound/Incision Care: Keep Operative Site/Wound Site Clean and Dry - Discharge Plan Home Medications: Home Meds Ascorbic Acid 500 mg PO TID 02/13/17 [History] Cholecalciferol (Vitamin D3) [D3 Dots] 2,000 unit PO DAILY 02/13/17 [History] Cranberry Extract [Cranberry] 500 mg PO DAILY 02/13/17 [History] Famotidine 20 mg PO QPM 02/13/17 [History] Ferrous Gluconate 325 mg PO TID 02/13/17 [History] Loratadine [Claritin] 10 mg PO DAILY 02/13/17 [History] Multivit-Minerals/FA/Lycopene [Men's Daily Formula Tablet] 1 each PO DAILY 02/13 [History] Pramipexole Di-HCl [Mirapex] 0.125 mg PO QPM 02/13/17 [History] HCTZ/Triamterene [Maxzide 25-37.5 MG] 0.5 each PO DAILY 02/14/17 [History] Ibuprofen [Advil] 400 mg PO BEDTIME 02/14/17 [History] Carboxymethylcellulose Sodium [Refresh Tears 0.5%] 1 drop EYEBOTH ASDIRECTED PRN 02/18/17 [History] Patient Handouts: Open Colectomy, Care After Referrals: Trisha Hahn, [employer] [Primary Care Provider] - (Call for appt with Trisha Hahn next Feb 25 for staple removal and Oncology referral) - Patient Data Vitals - Most Recent: Last Vital Signs Temp 97.6 F 02/19/17 12:00 Pulse 77 02/19/17 12:00 Resp 18 02/19/17 12:00 BP 122/63 02/19/17 12:00 Pulse Ox 99 02/19/17 12:00 Weight - Most Recent: 51.982 kg I&O - Last 24 hours: Intake & Output 02/18/17 02/19/17 02/19/17 22:59 06:59 14:59 Intake Total 107 645 1863 Output Total 550 700 600 Balance 1 13 560 Med Orders - Current: Current Medications Enoxaparin Sodium (Lovenox) 30 mg SUBCUT Q24H [facility] Last Admin: 02/19/17 09:08 Dose: 30 mg Potassium Chloride 20 meq/ (Lactated Ringer's) 1,010 mls @ 75 mls/hr IV Q13H [facility] Last Admin: 02/19/17 12:38 Dose: 75 mls/hr Ibuprofen (Motrin) 400 mg PO Q6H PRN PRN Reason: Abdominal Pain Last Admin: 02/18/17 21:31 Dose: 400 mg Pramipexole Dihydrochloride (Mirapex) 0.125 mg PO 1800 [facility] Last Admin: 02/18/17 18:24 Dose: 0.125 mg Sodium Chloride (Saline Flush) 10 ml FLUSH ASDIRECTED PRN PRN Reason: Keep Vein Open Triamterene/HCTZ (Maxzide 25-37.5 Mg) 0.5 each PO DAILY [facility] Last Admin: 02/19/17 09:08 Dose: 0.5 each Discontinued Medications Dexamethasone (Dexamethasone) 8 mg IVPUSH .STK-MED ONE Stop: 02/14/17 11:41 Edrophonium Chloride (Enlon) 30 mg IVPUSH .STK-MED ONE Stop: 02/14/17 11:41 Fentanyl (Sublimaze) 50 mcg IVPUSH Q5M PRN PRN Reason: Pain (severe 7-10) Fentanyl (Sublimaze) 100 mcg IV .STK-MED ONE Stop: 02/14/17 11:41 Glycopyrrolate () 0.4 mg IVPUSH .STK-MED ONE Stop: 02/14/17 11:41 Lactated Ringer's (Ringers, Lactated) 1,000 mls @ 125 mls/hr IV ASDIRECTED [facility] Last Admin: 02/14/17 10:24 Dose: 125 mls/hr Cefoxitin Sodium 1 gm/ Premix 50 mls @ 100 mls/hr IV ONETIME ONE Stop: 02/14/17 11:14 Last Admin: 02/14/17 11:37 Dose: 100 mls/hr Lactated Ringer's (Ringers, Lactated) 1,000 mls @ 75 mls/hr IV ASDIRECTED [facility] Last Admin: 02/18/17 04:37 Dose: 100 mls/hr Cefoxitin Sodium 1 gm/ Premix 50 mls @ 100 mls/hr IV Q6H [facility] Stop: 02/16/17 05:29 Last Admin: 02/16/17 04:54 Dose: 100 mls/hr Lactated Ringer's (Ringers, Lactated) 1,000 mls @ 0 mls/hr IV ASDIRECTED [facility] PRN Reason: KVO Lactated Ringer's (Ringers, Lactated) 1,000 mls @ as directed IV .STK-MED ONE Stop: 02/14/17 11:41 Ketorolac Tromethamine (Toradol) 15 mg IVPUSH Q6H [facility] Stop: 02/16/17 21:01 Last Admin: 02/16/17 20:44 Dose: 15 mg Ketorolac Tromethamine (Toradol) 15 mg IVPUSH .STK-MED ONE Stop: 02/14/17 11:41 Midazolam HCl (Versed 1 Mg/Ml) 2 mg IV .STK-MED ONE Stop: 02/14/17 11:41 Morphine Sulfate (Morphine) 1 mg IVPUSH Q2H PRN PRN Reason: Pain (severe 7-10) Last Admin: 02/18/17 02:36 Dose: 1 mg Morphine Sulfate (Morphine) 2 mg IV Q5M PRN PRN Reason: Pain (moderate 4-6) Last Admin: 02/14/17 15:00 Dose: 2 mg Ondansetron HCl (Zofran) 4 mg IVPUSH .STK-MED ONE Stop: 02/14/17 11:41 Pantoprazole Sodium (Protonix Iv) 40 mg IVPUSH Q24H [facility] Pantoprazole Sodium (Protonix Iv) 40 mg IVPUSH Q24H [facility] Last Admin: 02/17/17 16:16 Dose: 40 mg Propofol (Diprivan 20 Ml) 140 mg IV .STK-MED ONE Stop: 02/14/17 11:41 Rocuronium [place] (Zemuron) 50 mg IV .STK-MED ONE Stop: 02/14/17 11:41 Succinylcholine Chloride (Succinylcholine In Ns Pf) 80 mg IV .STK-MED ONE Stop: 02/14/17 11:41 *Q Meaningful Use (DIS) - VTE *Q VTE Criteria *Q: - Stroke *Q Stroke Criteria *Q: - AMI *Q AMI Criteria *Q:
== END 2017-02-19 14:40 | disposition home or self-care (01) | DRG 330 ==
LOC: FB.MS 08:50
PROVIDERS: ADMIT Surgery; ATTEND Surgery
PROC: 0DTF0ZZ Resection of Right Large Intestine, Open Approach (ICD-10-PCS; principal; 2017-02-14)
DX: C18.0 Malignant neoplasm of cecum (principal); C77.2 Secondary and unspecified malignant neoplasm of intra-abdominal lymph nodes; D64.9 Anemia, unspecified; G25.81 Restless legs syndrome; I10 Essential (primary) hypertension
CPT/HCPCS: 36415; 80048; 85018; 85027; 86850; 86900; 86901; 88309; 94150; A9270-GY; C9113; J0694; J1100; J1650; J1885; J2250; J2270; J2405; J2704; J3010; J3480; J7120